=== PATIENT | female | born 1990 | race Native Hawaiian/Other Pacific Islander ===

== ENCOUNTER → 2018-10-15 | Outpatient (CLI) | payer OTHER ==
--- NOTE | 2018-10-15 14:14 | REP ---
Obstetric sonography: History: Supervision of . Biophysical profile assessment. 35 weeks 4 days gestation. Findings: Limited obstetric sonography demonstrates a viable single intrauterine gestation in a cephalic lie. Placenta is anterior grade 2 without evidence of previa or abruption. Amniotic fluid is subjectively normal. VITA is normal at 16.1 cm. Umbilical cord is seen draping across the shoulders. Closed cervical length viewed transabdominally is 3.7 cm. heart rate is recorded at 134 beats per minute. Biophysical profile score is eight out of a possible eight. The SD ratio in the umbilical cord artery by Doppler is normal at 2.36. Electronically Signed by Ke Bullard MD 10/15/2018 02:05 P
== END ==
LOC: M RAD 13:04
PROVIDERS: ATTEND Midwife
DX: Z34.83 Encounter for supervision of other normal pregnancy, third trimester (principal); Z3A.35 35 weeks gestation of pregnancy

== ENCOUNTER 2018-11-13 11:40 | Inpatient (IN) | payer OTHER ==
[~2018-11-13] VITALS: Ht 165.1 cm; Wt 93.3 kg
[2018-11-13] VITALS (13 sets, daily range): BP systolic 106–132; BP diastolic 57–82
[2018-11-13] MEDS ORDERED: PRENTAB9 PO (12:07)
[2018-11-13] MEDS ORDERED: METF500T13 PO (12:07)
[2018-11-13] MEDS ORDERED: LR 1,000 ML IV SCH ×2 (12:53→13:50)
[2018-11-13 13:52] LABS: HEMATOCRIT 39.5 % (36.0-47.0); HEMOGLOBIN 13.7 g/dl (12.0-15.5); MEAN CORPUSCULAR HEMOGLOBIN 31.3 pg (27.0-33.0); MEAN CORPUSCULAR HGB CONC 34.7 g/dl (32.0-36.5); MEAN CORPUSCULAR VOLUME 90.2 fl (80.0-96.0); PLATELET COUNT, AUTOMATED 183 10^3/uL (150-450); RED BLOOD COUNT 4.38 10^6/uL (4.00-5.40); WHITE BLOOD COUNT 7.6 10^3/uL (4.0-10.0)
[2018-11-13] MEDS ORDERED: OXYTOCIN DRIP 30 UNITS in APPROPRIATE DILUENT 1 EA IV SCH (14:00)
[2018-11-13 14:35] LABS: ALT/SGPT 20 U/L (12-78); BILIRUBIN,TOTAL 0.4 MG/DL (0.2-1.0); BLOOD UREA NITROGEN 9 MG/DL (7-18); CALCIUM LEVEL 8.3 MG/DL (8.5-10.1); CARBON DIOXIDE LEVEL 21 MEQ/L (21-32); CHLORIDE LEVEL 108 MEQ/L (98-107); CREATININE FOR GFR 0.68 MG/DL (0.55-1.30); GLOMERULAR FILTRATION RATE > 60.0 (>60); GLUCOSE, FASTING 86 MG/DL (70-100); POTASSIUM SERUM 3.9 MEQ/L (3.5-5.1); SODIUM LEVEL 140 MEQ/L (136-145); TOTAL PROTEIN 6.4 GM/DL (6.4-8.2)
--- NOTE | 2018-11-13 18:13 | HPEPDOC ---
Obstetrical History & Physical General Date of Admission Nov 13, 2018 at 11:40 History of Present Illness Late entry, pt seem earlier 27 y/o at 39+5 for scheduled IOL due to GDMA2, on metformin. No LOF/VB/reg ctx's. Increased mucousy d/c. Pos FM. Has been on Metformin for 1-2 months. States her BS's have been well controlled. uncomplicated o/w. 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 History: No pertinent history Past Medical History Medical History denies Surgical History: Denies/None Family History Significant Family History: No pertinent family hx Social History Marital Status: Family situation: Spouse/partner home Psychosocial History: No pertinent psych hx * Smoker: non-smoker Alcohol: Denies Drugs: denies Abuse Violence Screening Have you been hit/kicked/slapp: No Have you been sexually assault: No Imunizations Tdap status: current Influenza Status: current Allergies Coded Allergies: No Known Allergies (Unverified , 11/13/18) Medications Scheduled Metformin Hydrochloride (Metformin HCl) 500 Mg Tab, 750 MG PO DAILY Multivitamins/ ( 27-0.8 mg) 1 Tab Tab, 1 TAB PO DAILY Physical Examination Physical Examination GENERAL: Alert and oriented times three. ABDOMEN: Gravid and non-tender to touch. FETUS: Is vertex (VTX) by sterile vaginal examination (SVE), at 1345 was 3/60/- 2, membranes swept EXTREMITIES: No edema. Vital Signs/I&O Vital Signs Date Time Temp Pulse Resp B/P (MAP) Pulse Ox O2 Delivery O2 Flow Rate FiO2 11/13/18 17:28 85 16 114/68 (83) 11/13/18 16:04 98.4 Laboratory Data 24H LABS Laboratory Tests 2 11/13/18 11:51: Serology Scanned Report Hepatitis B Testing 11/13/18 13:38: Nucleated Red Blood Cells % (auto) 0.0, Anion Gap 11, Glomerular Filtration Rate > 60.0, Blood Urea Nitrogen 9, Creatinine 0.68, Sodium Level 140, Potassium Level 3.9, Chloride Level 108H, Carbon Dioxide Level 21, Calcium Level 8.3L, Aspartate Amino Transf (AST/SGOT) 18, Alanine Aminotransferase (ALT/SGPT) 20, Alkaline Phosphatase 185H, Total Bilirubin 0.4, Total Protein 6.4, Albumin 3.0L, Albumin/Globulin Ratio 0.88L, Syphilis Serology NONREACTIVE CBC/BMP Laboratory Tests 11/13/18 13:38 Red Blood Count 4.38, Mean Corpuscular Volume 90.2, Mean Corpuscular Hemoglobin 31.3, Mean Corpuscular Hemoglobin Concent 34.7, Red Cell Distribution Width 15.0 H, Calcium Level 8.3 L, Aspartate Amino Transf (AST/SGOT) 18, Alanine Aminotransferase (ALT/SGPT) 20, Alkaline Phosphatase 185 H, Total Bilirubin 0.4, Total Protein 6.4, Albumin 3.0 L Urine Culture: Contaminated Pertinent Laboratoy Data Blood Type: O+ RBC Antibody Screen: Negative HIV: Negative Hepatitis B: Negative Hepatitis C: Unknown Rapid Plasma Reagin: Nonreactive Rubella: Immune Varicella: Immune Chlamydia/Gonorrhea: Negative Group B Streptococcus: Negative Quad Screen Test: Declined Cystic Fibrosis: Negative Glucose Tolerance Test: 182 (abnl 3 hr GTT also) Anatomy Ultrasound Ultrasound Date: Jun 28, 2018 Placenta Location: Anterior Normal Anatomy: Yes Placenta Previa: No (rpt US 14FEB showed 89%ile) Assessment Variability: Moderate Accelerations: Positive Decelerations: None Tocometer Contractions: Yes Frequency: irregular Duration: less than 60 seconds Strength: palpated as mild Assessment/Plan Assessment 39+5 for IOL. GDMA2, well controlled. Favorable Cx. Plan Admit and orient. 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 Diet: clears Group B Streptococcus (GBS) neg Labs and intravenous (IV) per unit protocol. Counseled on Pitocin and induction of labor (IOL). Lactated Ringers (LR): Bolus 1000 mL prior to epidural, then at 125 mL/hr. Anticipate normal spontaneous delivery () C-S as appropriate. Sessions MD GORDON,JOSE Lopez MD Nov 13, 2018 18:12
[2018-11-13] MEDS ORDERED: NALBUPHINE HCL 10 MG/ML AMP (J2300) IM ONE (22:00)
[2018-11-13] MEDS ORDERED: NALBUPHINE HCL 10 MG/ML AMP (J2300) IV ONE (22:00)
[2018-11-13] MEDS ORDERED: PROMETHAZINE INJ 25 MG/ML VIAL (J2550) IV ONE (22:00)
[2018-11-14] MEDS ORDERED: OXYTOCIN DRIP 30 UNITS in APPROPRIATE DILUENT 1 EA IV SCH (01:25)
[2018-11-14] MEDS ORDERED: ACETAMINOPHEN TAB 650MG DOSE (2X325MG) PO PRN (01:30)
[2018-11-14] MEDS ORDERED: RHOGAM 300 MCG (1500 IU) INJ (J2790) IM SCH (01:30)
[2018-11-14] MEDS ORDERED: MEASLES,MUMPS,RUBELLA VACCINE INJ (MMR-II) (90707) SC SCH (01:30)
[2018-11-14] MEDS ORDERED: METOCLOPRAMIDE INJ 10MG/2ML VIAL (J2765) IV PRN (01:30)
[2018-11-14] MEDS ORDERED: DIBUCAINE 1% OINTMENT 30GM TOP PRN (01:30)
[2018-11-14] MEDS ORDERED: LIDOCAINE 1% MDV 20ML VIAL INFIL ONE (01:30)
--- NOTE | 2018-11-14 01:31 | IPNPDOC ---
Text Note Date of Service The patient was seen on 11/14/18. NOTE Kept notified of pt's progression, at [phone], was unchanged and ctx's had not really been reg and painful yet. FHT was reported to me as Cat 1 throughout. Given Nub/Phen IV/IM meds at ~2200. Reported as C/C/intact at ~0030 AROM done with clr fluid Started pushing then Sessions VS,Simeon, I+O VSSimeon I+O Laboratory Tests 11/13/18 13:38 Red Blood Count 4.38, Mean Corpuscular Volume 90.2, Mean Corpuscular Hemoglobin 31.3, Mean Corpuscular Hemoglobin Concent 34.7, Red Cell Distribution Width 15.0 H, Calcium Level 8.3 L, Aspartate Amino Transf (AST/SGOT) 18, Alanine Aminotransferase (ALT/SGPT) 20, Alkaline Phosphatase 185 H, Total Bilirubin 0.4, Total Protein 6.4, Albumin 3.0 L Vital Signs Date Time Temp Pulse Resp B/P (MAP) Pulse Ox O2 Delivery O2 Flow Rate FiO2 11/13/18 18:44 90 16 115/60 (78) 11/13/18 16:04 98.4 I&O- Last 24 Hours up to 6 AM 11/14/18 06:00 Intake Total 620 ml Output Total 620 ml Balance 0 ml EVAN,JOSE Lopez MD Nov 14, 2018 01:31
--- NOTE | 2018-11-14 01:38 | DNPDOC ---
[facility] Delivery Note Delivery Note DATE OF DELIVERY: [id number] PREDELIVERY DIAGNOSIS: 39 6/7 weeks' gestation and labor. POST DELIVERY DIAGNOSIS: Delivered. PROCEDURE: Spontaneous vaginal delivery [employer] GOODS: Dr. Gordon ANESTHESIA: Nubain/Phenergan only 3 hrs prior to delivery ESTIMATED BLOOD LOSS: 300 mL. FINDINGS: 8 pound 7 ounce female infant, Score 8/9, nuchal cord times 1, tight but reducible, right posterior compound hand DELIVERY SUMMARY: Pushed very well, no delay of the vtx, SYLWIA to ROT, cord reduced. No delay of the ant shoulder, compound right posterior arm noted, no delay of the post shoulder. To abd in good shape. Cord C/C by FOB. Cord blood. Placenta intact with slight fundal massage, fundus firm pit going 999. Right inner labial lac not repaired, self approximates and not bleeding, 1st degr per lac repaired in standard fashion with 3-0 vicryl after 1% lidocaine bath. Good cosmesis and hemostasis. Uncomplicated. Sessions MD GORDON,JOSE Lopez MD Nov 14, 2018 01:38
[2018-11-14] MEDS: IBUPROFEN 800 MG TAB PO PRN (04:00)
[2018-11-14 05:30] VITALS: BP 110/57
--- NOTE | 2018-11-14 06:02 | IPNPDOC ---
Text Note Date of Service The patient was seen on 11/14/18. NOTE Told by L&D RN that on t-qu[place] had a bit of bleeding from small inner R labial lac that was not repaired after delivery. I examined the pt with her nurse. There is a small amt of blood on the ice/pad but clotted over the area in question and no active bleeding noted. OK to watch. Sessions VS,Simeon, I+O VSSimeon I+O Laboratory Tests 11/13/18 13:38 Red Blood Count 4.38, Mean Corpuscular Volume 90.2, Mean Corpuscular Hemoglobin 31.3, Mean Corpuscular Hemoglobin Concent 34.7, Red Cell Distribution Width 15.0 H, Calcium Level 8.3 L, Aspartate Amino Transf (AST/SGOT) 18, Alanine Aminotransferase (ALT/SGPT) 20, Alkaline Phosphatase 185 H, Total Bilirubin 0.4, Total Protein 6.4, Albumin 3.0 L Vital Signs Date Time Temp Pulse Resp B/P (MAP) Pulse Ox O2 Delivery O2 Flow Rate FiO2 11/13/18 18:44 90 16 115/60 (78) 11/13/18 16:04 98.4 I&O- Last 24 Hours up to 6 AM0 11/14/18 06:00 Intake Total 620 ml Output Total 920 ml Balance -300 ml SESSIONSJOSE MD Nov 14, 2018 06:02
[2018-11-14] MEDS: PRENATAL VITAMINS CHEWABLE TABLET PO SCH (14:34)
[2018-11-14] MEDS: DOCUSATE SODIUM 100 MG CAP PO SCH ×2 (14:34→20:50)
[2018-11-14 18:11] VITALS: BP 119/76
[2018-11-15 06:00] VITALS: BP 111/62
[2018-11-15] MEDS: IBUPROFEN 800 MG TAB PO PRN (06:28)
--- NOTE | 2018-11-15 08:04 | IPNPDOC ---
Progress Note Date of Service: Nov 15, 2018 Day#: 1 Progress Note PPD 1 SUBJECT: Toshia is a 28yo [id number] s/p uncomplicated after IOL for A2GDM on metformin, delivering at 56 on 11/14, doing well day # 1. She has been ambulating, voiding spontaneously without issue and tolerating regular diet. Breast feeding, having some difficulty with latch. Reports lochia is like a normal period. No f/c/n/v/CP/SOB. OBJECTIVE: VITAL SIGNS: Within normal limits, afebrile. Alert and oriented times three. Abdomen: Fundus firm at U-2. Soft, NTTP. Extremities: no pain with palpation of calves ASSESSMENT: Toshia is a 28yo [id number] s/p uncomplicated after IOL for A2GDM on metformin, delivering at 005 on 11/14, doing well day # 1. Vitals within normal limits, afebrile, hemodynamically stable with no evidence of infection. PLAN: 1. Discharge to home today. 2. Tylenol and Motrin for pain. 3. Encourage breast feeding and ambulation. 4. Minipill for contraception provided, discussed taking at same time every day 5. Routine PP visit in 6 weeks in clinic. 6. Discussed return precautions at length. Dr. Madeline Hare MD VS, I&O, 24H, Fishbone Vital Signs/I&O Vital Signs Date Time Temp Pulse Resp B/P (MAP) Pulse Ox O2 Delivery O2 Flow Rate FiO2 11/15/18 06:00 98.0 70 18 111/62 (78) 99 Madeline Hare MD Nov 15, 2018 08:04
[2018-11-15] MEDS ORDERED: COLA100C5 PO (08:39)
[2018-11-15] MEDS ORDERED: MAPA500T2 PO (08:43)
[2018-11-15] MEDS ORDERED: IBUP-1114 PO (08:43)
[2018-11-15] MEDS: PRENATAL VITAMINS CHEWABLE TABLET PO SCH (09:10)
[2018-11-15] MEDS: DOCUSATE SODIUM 100 MG CAP PO SCH (09:11)
== END 2018-11-15 12:16 | disposition home or self-care (01) | DRG 807 ==
LOC: M LDI 11:40 → M OBS 11-14 03:37
PROVIDERS: ADMIT Obstetrics & Gynecology; ATTEND Obstetrics & Gynecology
PROC: 10E0XZZ Delivery of Products of Conception, External Approach (ICD-10-PCS; principal; 2018-11-14)
PROC: 0HQ9XZZ Repair Perineum Skin, External Approach (ICD-10-PCS; 2018-11-14)
DX: O24.425 Gestational diabetes mellitus in childbirth, controlled by oral hypoglycemic drugs (principal); Z37.0 Single live birth; Z3A.39 39 weeks gestation of pregnancy; O69.89X0 Labor and delivery complicated by other cord complications, not applicable or unspecified; O32.6XX0 Maternal care for compound presentation, not applicable or unspecified; O70.0 First degree perineal laceration during delivery